=== PATIENT | male | born 1995 | race African-American/Black ===

== ENCOUNTER 2023-12-07 21:25 | Emergency (ER) | payer MEDICAID, OTHER ==
[~2023-12-07] VITALS: Ht 180.3 cm; Wt 67.0 kg
[2023-12-07 21:58] VITALS: O2SAT 100
[2023-12-07] MEDS ORDERED: LIDOCAINE HCL/PF 1% 10 MG/ML 5ML VIAL INFIL ONE (23:30)
[2023-12-07] MEDS ORDERED: TETANUS, DIPHTHERIA, PERTUSSIS VAC/PF 0.5ML (>10YR OLD) IM ONE (23:30)
[2023-12-07] MEDS ORDERED: BACITRACIN ZINC OINT UDPKT TOP ONE (23:30)
[2023-12-08 00:08] VITALS: BP 111/58; PULSE 52; RESP 19
[2023-12-08] MEDS ORDERED: ACETAMINOPHEN 325MG TABLET PO ONE (00:15)
[2023-12-08 00:24] VITALS: TEMP 97.6
== END 2023-12-08 00:25 | disposition home or self-care (01) ==
LOC: ER 21:25
DX: S61.411A Laceration without foreign body of right hand, initial encounter (principal); X58.XXXA Exposure to other specified factors, initial encounter; Y93.89 Activity, other specified; Y92.89 Other specified places as the place of occurrence of the external cause; Y99.8 Other external cause status
CPT/HCPCS: 99282; 12001; J3490; 90715

== ENCOUNTER 2025-11-02 15:16 | Emergency (ER) | payer MEDICAID ==
[~2025-11-02] VITALS: Ht 177.8 cm; Wt 75.0 kg
[2025-11-02 15:50] VITALS: O2SAT 100
[2025-11-02] MEDS ORDERED: DEXAMETHASONE 1 MG/ML ORAL SYR PO ONE (17:45)
[2025-11-02] MEDS: ACETAMINOPHEN 500MG TABLET PO ONE (18:06)
[2025-11-02] MEDS: DEXAMETHASONE 4MG TABLET PO NR (18:07)
[2025-11-02] MEDS: AMOXICILLIN/POTASSIUM CLAVULANATE 875/125MG TAB PO ONE (18:07)
[2025-11-02] MEDS ORDERED: AMOX1TAB16 MT (18:20)
[2025-11-02] MEDS ORDERED: ACET-2708 MT (18:20)
[2025-11-02 18:32] VITALS: BP 111/80; PULSE 79; RESP 16; TEMP 37.2; O2SAT 100
== END 2025-11-02 18:32 | disposition home or self-care (01) ==
LOC: ER 15:16
DX: J02.0 Streptococcal pharyngitis (principal); H92.02 Otalgia, left ear
CPT/HCPCS: 99284; 87430; 87070; J8540